=== PATIENT | female | born 1945 | race African-American/Black ===

== ENCOUNTER 2022-11-04 17:05 | Emergency (ER) | payer OTHER, SELFPAY ==
--- NOTE | 2022-11-04 18:38 | ED.CPR ---
HPI - CPR General Chief Complaint: Cardiac Arrest/CPR Stated Complaint: cardiac arrest Time Seen by Provider: 11/04/22 18:38 Source: EMS Mode of arrival: EMS Limitations: clinical condition History of Present Illness HPI narrative: Patient is 76 years old -[place] female came to the ED by ambulance with cardiac arrest. EMT reported that patient had unwitnessed arrest, last time was seen by her daughter approximately 10 minutes prior to the arrest. The daughter found her mom UNresponsive. EMT arrived, patient got intubated, Marquise in place upon arrival performing compressions, EMT reported that patient has been pulseless ,PEA and V. tach once, shocked once prior to arrival. Patient was about 10 minutes and witnessed arrest, 30 minutes from the time of MD arrival until came to our emergency room, CPR was in process for approximately 45 minutes in our emergency room. Patient was pronounced at that time. According to her daughter that the patient had history of diabetes, COPD, hypertension. Had trouble breathing today with any light activities Related Data Allergies Allergy/AdvReac Type Severity Reaction Status Date / Time codeine Allergy Verified 09/20/11 15:41 MEPERIDINE HCL Allergy Uncoded 09/20/11 15:41 Review of Systems Review of Systems: ROS unobtainable: Yes unobtainable due to endotracheal tube and unobtainable due to medical condition Exam Narrative: General appearance: Well-developed, well-nourished, morbidly obese, CPR in progress, intubated, Skin: Normal color Head: Normocephalic, nontraumatic Eyes: Clear conjunctiva, pupils wide dilated not reactive to light ENT: Quite a bit of fresh red bright blood coming out of the tube Chest and respiratory: Intubated, CPR in progress Heart: Tacky arrhythmia, irregular heartbeat Abdomen: Soft, not distended, no bowel sounds Vascular: Palpable femoral pulse with CPR in process, no pulse when CPR stopped for check Neurologic: Intubated MDM - Cardiac Arrest/CPR MDM Narrative Medical decision making narrative: Patient had unwitnessed cardiac arrest for approximately 10 minutes, EMT management including intubation, cardiac shock once for ventricular fibrillation and continuation of the CPR process for 30 minutes prior to arrival to the emergency room. On arrival to the ED patient is PEA, CPR protocol was applied for 45 minutes, then patient was pronounced . Patient got shocked twice in the emergency room, received epinephrine and sodium bicarb according to the protocol. Family member were notified, family physician physician dental ceramist assistant were notified and his name is Karthik NUÑEZ/Dr. Henry Milian Differential Diagnosis Differential diagnosis: Likely acute massive pulmonary embolism, acute respiratory failure, acute myocardial infarction, cardiac arrest and sudden cardiac Critical Care Time Critical Care Time Critical Care Time: Yes Total Critical Care Time: 60 Discharge Plan Discharge Clinical Impression: Cardiac arrest Patient Disposition: Condition: Follow-up/Referrals: PHYSICIAN NOT ON STAFF,NONSTAFF [Primary Care Provider] -
--- NOTE | 2022-11-04 21:21 | PC.NURSE ---
Zoll monitor code strip with code sheet
== END 2022-11-04 18:38 | disposition expired ==
PROVIDERS: Emergency Provider Emergency Medicine
DX: I46.9 Cardiac arrest, cause unspecified (principal)
CPT/HCPCS: 92950; 99291; J0171; J7030